=== PATIENT | male | born 1940 | race Caucasian/White ===

== ENCOUNTER 2018-06-28 12:52 | Outpatient (REF) | payer MEDICARE, OTHER, SELFPAY ==
[2018-06-28 13:45] LABS: Prothrombin Time 43.9 sec (9.3-11.0)
[2018-06-28 14:22] LABS: INR 4.3 (1.0-3.5)
== END 2018-06-28 13:12 ==
LOC: NCHCN 12:52
PROVIDERS: PCP Internal Medicine; Visit Provider Internal Medicine
DX: I48.91 Unspecified atrial fibrillation (principal); Z79.01 Long term (current) use of anticoagulants; Z95.818 Presence of other cardiac implants and grafts
CPT/HCPCS: 85610

== ENCOUNTER → 2018-07-08 11:46 | Outpatient (BNVA) | payer MEDICARE, OTHER, SELFPAY | PROVIDERS: PCP Internal Medicine; Referring Provider Internal Medicine; Visit Provider Surgery | DX: L72.3 Sebaceous cyst (principal); J44.9 Chronic obstructive pulmonary disease, unspecified; Z87.891 Personal history of nicotine dependence; I10 Essential (primary) hypertension | CPT/HCPCS: 99213 ==

== ENCOUNTER → 2018-07-15 15:18 | Outpatient (BNVA) | payer MEDICARE, OTHER, SELFPAY | PROVIDERS: PCP Internal Medicine; Referring Provider Internal Medicine; Visit Provider Surgery | DX: L72.3 Sebaceous cyst (principal) | CPT/HCPCS: 11404; 99211 ==

== ENCOUNTER → 2018-07-24 09:07 | Outpatient (BNVA) | payer MEDICARE, OTHER, SELFPAY | PROVIDERS: PCP Internal Medicine; Referring Provider Internal Medicine; Visit Provider Surgery | DX: L72.3 Sebaceous cyst (principal); Z48.817 Encounter for surgical aftercare following surgery on the skin and subcutaneous tissue; M79.81 Nontraumatic hematoma of soft tissue; I10 Essential (primary) hypertension; J44.9 Chronic obstructive pulmonary disease, unspecified; Z87.891 Personal history of nicotine dependence | CPT/HCPCS: 99343 ==

== ENCOUNTER 2020-01-13 00:14 | Outpatient (REF) | payer OTHER, SELFPAY ==
[2020-01-13 22:04] LABS: Anion Gap 5.9 mmol/L (3-11); BUN 17 mg/dL (7-18); CO2 31.1 mmol/L (21.0-32.0); CREATININE 1.05 mg/dL (0.70-1.30); Calcium 8.8 mg/dL (8.5-10.1); Chloride 104 mmol/L (98-107); Glucose 134 mg/dL (74-106); Potassium 4.7 mmol/L (3.5-5.1); Sodium 141 mmol/L (136-145)
[2020-01-13 22:07] LABS: HCT 45.5 % (40.0-50.0); HGB 14.1 g/dL (13.5-17.5); Mean Corpuscular Hemoglobin 26.9 pg (27.0-33.0); Mean Corpuscular Volume 86.7 fL (80-95); Mean Platelet Volume 10.7 fL (8.0-11.0); Platelet Count 362 x1000/uL (130-400); RBC 5.25 m/cumm (4.50-6.00); RBC Distribution Width 17.8 % (11.8-14.1)
== END 2020-01-13 00:34 ==
LOC: NCHCN 00:14
PROVIDERS: PCP Internal Medicine; Visit Provider Internal Medicine
DX: I10 Essential (primary) hypertension (principal); I48.91 Unspecified atrial fibrillation
CPT/HCPCS: 80048; 85027; 80353

== ENCOUNTER 2020-04-07 12:21 | Outpatient (REF) | payer OTHER, SELFPAY ==
[2020-04-08 17:44] LABS: PSA, Screening 1.9 ng/mL (0.0-6.5)
== END 2020-04-07 12:41 ==
LOC: NCHCN 12:21
PROVIDERS: PCP Internal Medicine; Visit Provider Internal Medicine
DX: Z12.5 Encounter for screening for malignant neoplasm of prostate (principal)
CPT/HCPCS: 84153